=== PATIENT | female | born 1940 | race Native Hawaiian/Other Pacific Islander ===

== ENCOUNTER 2018-05-16 08:56 | Observation (INO) | payer BC, MEDICAID, MEDICARE ==
[2018-05-16 09:07] VITALS: BMI 23.4
[2018-05-16] MEDS ORDERED: Nitroglycerin 2% Ointment Foilpak UD TOP STA (09:32)
--- NOTE | 2018-05-16 09:37 | ED PDOC ---
Arrival/HPI - General Chief Complaint: Chest Pain Time Seen by Provider: 05/16/18 09:07 Historian: Patient, EMS - History of Present Illness Narrative History of Present Illness (Text): 05/16/18 09:25 pt p/w + sudden onset of severe b/l leg cramps and + left chest/shoulder pain; pt states pain radiates to her left neck/upper left shoulder and left arm ending at the left elbow; pt took 2 ASA and thought it would help her but the chest pain continued without any improvement; pt states her leg cramps/pain awoke her from bed this morning ~ 4am; pt states + sob, + palpitations, no fever /chills/sweats, no abd pain, no n/v, no numbness/tingling, no lightheadedness/ dizziness, no LOC, no fall/trauma/sick contact, no travel; pt denied urinary/ bowel changes, no incontinence; pt denied rashes; pt denied bleeding; pt is here for further eval; pt's without other complaints. PCP: Dr Prescott? Cards: None, pt was last evaluated ~ 2 years ago, negative results at that time pt lives alone Time/Duration: 1-3 hours Symptom Onset: Sudden Symptom Course: Unchanged Quality: Tightness, Cramping, Throbbing Severity Level: Severe Activities at Onset: Rest Context: Home Past Medical History - Provider Review Nursing Documentation Reviewed: Yes - Travel History Have you recently traveled outside [place] w/in the past 3 mons?: No - Past History Past History: No Previous - Infectious Disease Hx of Infectious Diseases: None - Reproductive Menopause: Yes Currently : No - Cardiac Hx Cardiac Disorders: No - Pulmonary Hx Respiratory Disorders: No - Neurological Hx Neurological Disorder: No - HEENT Hx HEENT Disorder: No - Renal Hx Renal Disorder: No - Endocrine/Metabolic Hx Endocrine Disorders: Yes Hx Diabetes Mellitus Type 1: Yes - Hematological/Oncological Hx Blood Disorders: No - Integumentary Hx Dermatological Disorder: No - Musculoskeletal/Rheumatological Hx Musculoskeletal Disorders: No - Gastrointestinal Hx Gastrointestinal Disorders: No - Genitourinary/Gynecological Hx Genitourinary Disorders: No - Psychiatric Hx Psychophysiologic Disorder: No Hx Substance Use: No Family/Social History - Physician Review Nursing Documentation Reviewed: Yes Family/Social History: No Known Family HX Smoking Status: Never Smoked Hx Alcohol Use: No Hx Substance Use: No Hx Substance Use Treatment: No Allergies/Home Meds Allergies/Adverse Reactions: Allergies No Known Allergies Allergy (Verified 05/16/18 09:06) Home Medications: Home Meds Medication Instructions Recorded Confirmed Unobtainable 05/16/18 05/16/18 Review of Systems - Review of Systems Constitutional: Normal Eyes: Normal ENT: Normal Respiratory: SOB Cardiovascular: Chest Pain, Palpitations Gastrointestinal: Normal Genitourinary Female: Normal Musculoskeletal: Normal Skin: Normal Neurological: absent: Headache, Dizziness Endocrine: Normal Hemo/Lymphatic: Normal Psychiatric: Normal Physical Exam - Physical Exam Narrative Physical Exam (Text): 05/16/18 09:30 General: alert/awake, GCS = 15, oriented x 3, resting in bed, uncomfortable, cooperative, interactive; NAD Head: NC/AT EYE: PERRLA, EOMI, sclera anicteric, no nystagmus, no photophobia; visual field intact b/l Facial: WNL Oral: uvula/tongue are midline, no exudate/lesions, no drooling/stridor, no dysphonia; fair dentitions; moist oral mucosa NECK: intact ROM, no midline tenderness, no nuchal rigidity, no meningeal signs ; no step off Chest: CTA b/l, no w/r/r; no tachypenia, no accessory muscle use noted Cardiac: +S1, +S2, no m/r/r, + tachycardia Abdominal: +BS, soft/nd/nt, well nourished patient; no masses/rebound/guarding/ rigidity; no cardona's sign, no mcburney's point tenderness Extremities: intact ROM, strength 5/5 grossly intact in all limbs, neurovasc intact b/l; + ambulatory; reflex +2/2; no olivia's sign b/l, no pitting edema/ leg swellings noted b/l; no gross deformities noted BACK: no step off, no midline tenderness, NO crepitus, no gross deformities noted; Intact ROM SKIN: cap refill < 1 sec, no ulcerations, no petechiae, no rashes; no gross pallor noted NEURO: CNII-XII WNL, no facial asymmetries, no slurr speech, oriented x 3 NIH stroke scale ~ 0 Psych: normal insight, normal affect; follows command with ease Vital Signs Reviewed: Yes Vital Signs Temp Pulse Pulse Resp BP BP Pulse Ox 05/16/18 12:06 98 F 82 20 128/65 05/16/18 11:31 82 20 128/65 100 05/16/18 09:18 107 H 134/63 05/16/18 09:07 98.0 F 121 H 20 134/63 100 05/16/18 09:04 98.0 F 121 H 20 134/63 100 Temperature: Afebrile Blood Pressure: Normal Pulse: Tachycardic Respiratory Rate: Normal Appearance: Positive for: Well-Appearing, Uncomfortable. No: Non-Toxic, Ill- Appearing, Unkept Pain Distress: None Mental Status: Positive for: Alert and Oriented X 3 Finger Stick Blood Glucose: 46 - Systems Exam Head: Present: Atraumatic, Normocephalic Medical Decision Making ED Course and Treatment: 05/16/18 09:38 Impression: left chest pain, palpitations, leg cramps i have consider all the differential diagnosis regarding pt's chief medical complaints/clinical findings, including but are not limited to: r/o acs, palpitations, leg cramps (likely peripheral neuropathy) A/P: left chest pain, palpitations - labs - acs eval - xray - supportive care - observe/reevaluation pt took ASA prior to Emergency department arrival [id number] pt is feeling improved pt states chest pain is easing given pt's complaints and multiple co-morbidities, will recommend patient for admission, ACS eval/observation pt is made aware of his medical results agrees with admission 05/16/18 11:15 Dr. Sutherland contacted, made aware of patient's emergent complaints, diagnostic finds, and emergency department management. Is agreeable with emergency department admission/observation placement. Requests Dr. Salazar for cardiac evaluation. due to elevated D-dimer with tachycardia, will recommend CTA chest, r/o pe Re-evaluation Time: 12:30 Reassessment Condition: Improved - Lab Interpretations Lab Results: 05/16/18 09:47 05/16/18 09:47 Lab Results 05/16/18 09:59: POC Glucose (mg/dL) 90 05/16/18 09:47: pO2 30, VBG pH 7.30 L, VBG pCO2 53.0, VBG HCO3 26.1, VBG Total CO2 27.7, VBG O2 Sat (Calc) 55.4, VBG Base Excess -1.1 L, VBG Potassium 4.4, Sodium 138.0, Chloride 106.0, Glucose 97, Lactate 3.7 H, FiO2 21.0, Venous Blood Potassium 4.4 05/16/18 09:47: TSH 3rd Generation 0.18 L 05/16/18 09:47: Sodium 140, Chloride 104, Potassium 4.4, Carbon Dioxide 25, Anion Gap 17, BUN 24 H, Creatinine 1.0, Est GFR ( Amer) > 60, Est GFR ( Non-Af Amer) 54, Random Glucose 97, Calcium 10.1, Magnesium 1.6 L, Total Bilirubin 0.1 L, AST 28, ALT 25, Alkaline Phosphatase 74, Lactate Dehydrogenase 341, Total Creatine Kinase 56, Troponin I < 0.01, NT-Pro-B Natriuret Pep 572 H, Total Protein 7.3, Albumin 3.8, Globulin 3.5, Albumin/Globulin Ratio 1.1 05/16/18 09:47: Urine Color Yellow, Urine Appearance Clear, Urine pH 5.5, Ur Specific Douglas 1.020, Urine Protein Negative, Urine Glucose (UA) 100 H, Urine Ketones Negative, Urine Blood Negative, Urine Nitrate Negative, Urine Bilirubin Negative, Urine Urobilinogen 0.2, Ur Leukocyte Esterase Trace H, Urine RBC 0 - 2 , Urine WBC 2 - 5, Ur Epithelial Cells 3 - 4, Urine Bacteria Few 05/16/18 09:47: PT 12.8 H, INR 1.11 H, APTT 24.4 L, D-Dimer, Quantitative 623 H 05/16/18 09:47: WBC 10.8, RBC 3.84, Hgb 10.8 L, Hct 33.3 L, MCV 86.7, MCH 28.1, MCHC 32.4, RDW 12.9, Plt Count 279, MPV 10.4, Gran % 69.9 H, Lymph % (Auto) 22.1 , Mcclain % (Auto) 6.8 H, Eos % (Auto) 0.9 L, Baso % (Auto) 0.3, Gran # 7.55 H, Lymph # (Auto) 2.4, Mcclain # (Auto) 0.7 H, Eos # (Auto) 0.1, Baso # (Auto) 0.03 05/16/18 09:05: POC Glucose (mg/dL) 46 L I have reviewed the lab results: Yes Interpretation: Abnormal lab values - RAD Interpretation Narrative RAD Interpretations (Text): 05/16/18 11:18 Chest X-ray reviewed by radiologist, shows: FINDINGS: LUNGS: No active pulmonary disease. PLEURA: No significant pleural effusion identified, no pneumothorax apparent. CARDIOVASCULAR: Normal. OSSEOUS STRUCTURES: No significant abnormalities. VISUALIZED UPPER ABDOMEN: Normal. OTHER FINDINGS: None. IMPRESSION: No active disease. ------- 05/16/18 14:10 PROCEDURE: CT chest with contrast (Pulmonary Angiogram) HISTORY: Chest pain. Rule out PE. COMPARISON: None available. TECHNIQUE: Contiguous helical/ transaxial computed tomography images were obtained of the chest in the pulmonary arterial phase of enhancement. Coronal and sagittal reformatted images were created and reviewed. Intravenous contrast dose: 100 cc Omnipaque 350 Radiation dose: Total exam DLP = 191.96 mGy-cm. This CT exam was performed using one or more of the following dose reduction techniques: Automated exposure control, adjustment of the mA and/or kV according to patient size, and/or use of iterative reconstruction technique. FINDINGS: PULMONARY ARTERIES: The visualized pulmonary trunk, right and left main, lobar, segmental and subsegmental branches of the pulmonary arteries are well opacified with no definitive filling defects seen to suggest acute central pulmonary embolus. Pulmonary trunk measures approximately 2.16 cm. AORTA: No acute findings. No thoracic aortic aneurysm. Ascending thoracic aorta measures approximately 3.0 5 cm and descending thoracic aorta measures approximately 2.3 cm. Soft and partially calcified atherosclerotic plaque changes noted along transverse and descending thoracic aorta extending into the upper abdominal aorta. LUNGS: Mild passive/dependent type atelectasis seen both posterior upper and lower lobes former slightly more significant than the latter. . There is a discrete approximately 5.8 mm nodule right posterior sulcus. Follow-up CT scan in 6 months recommended to assess stability. . PLEURAL SPACES: Unremarkable. No effusion or pneumothorax. HEART: Heart size is within range of normal. No significant pericardial effusion. . LYMPH NODES: There is a small borderline sized prevascular lymph node measuring 14 mm. . Suspect a small approximately 11.3 mm sub carinal lymph node size with the tiny calcification there may also be an additional right posterior mediastinal lymph node dorsal to the proximal right mainstem bronchus measuring 11 mm. . . There appears to be small approximately 6 mm right hilar lymph node. Central airways are midline and patent. No large central endoluminal lesions. BONES, CHEST WALL: Multilevel degenerative spondylosis of the thoracic spine most pronounced involving the mid to lower segments OTHER FINDINGS: There is an approximately 8 mm elliptical shaped calcification right lobe thyroid gland with an additional subjacent incomplete ring-like calcification. Followup thyroid ultrasound recommended. IMPRESSION: No evidence of acute central pulmonary embolus. .Mild passive atelectasis both posterior upper and lower lobes. Small 5.8 mm nodule right lung base. Follow-up CT scan 6 months recommended. . There are calcifications seen right lobe thyroid gland. Recommend followup thyroid ultrasound. Few shotty mediastinal lymph nodes as above Radiology Orders: 05/16/18 09:32 CHEST PORTABLE [RAD] Stat Director Pharmacy Services: Radiologist - EKG Interpretation EKG Interpretation (Text): 05/16/18 10:08 Sinus tach at 115 bpm, normal axis, no ectopy, non-specific ST changes, ABNL EKG ; no old ekg to compare with Interpreted by ED Physician: Yes Type: 12 lead EKG Comparison: No previous EKG avail. - Medication Orders Current Medication Orders: Gabapentin (Neurontin) 300 mg PO STAT BANG PRN Reason: Protocol Last Admin: 05/16/18 09:51 Dose: 300 mg Discontinued Medications Nitroglycerin (Nitro-Bid 2% Oint) 1 ea TOP STAT STA Stop: 05/16/18 09:33 Last Admin: 05/16/18 09:52 Dose: 1 ea Pneumococcal Polyvalent Vaccine (Pneumovax 23 Vaccine) 0.5 ml IM .ONCE ONE Stop: 05/16/18 12:34 Disposition/Present on Arrival - Present on Arrival Any Indicators Present on Arrival: No History of DVT/PE: No History of Uncontrolled Diabetes: No Urinary Catheter: No History of Decub. Ulcer: No History Surgical Site Infection Following: None - Disposition Have Diagnosis and Disposition been Completed?: Yes Diagnosis: Chest pain with moderate risk for cardiac etiology, Leg cramps, Hyperthyroidism Diagnosis: (Ruled Out): Hypothyroid Disposition: HOSPITALIZED Disposition Time: 11:30 Patient Plan: Admission, Observation, Telemetry Patient Problems: Current Active Problems Problem Status Onset Chest pain with moderate risk for cardiac etiology Acute Condition: STABLE
[2018-05-16 10:15] LABS: VENOUS BLOOD GAS BASE EXCESS -1.1 mmol/L (0.0-2.0); VENOUS BLOOD GAS PO2 30 mm/Hg (30-55)
[2018-05-16 10:20] LABS: PH,URINE 5.5 (4.7-8.0); URINE BILIRUBIN NEGATIVE (NEGATIVE); URINE BLOOD NEGATIVE (NEGATIVE); URINE GLUCOSE (UA) 100 mg/dL (NEGATIVE); URINE LEUKOCYTE ESTERASE TRACE Leu/uL (NEGATIVE); URINE PROTEIN NEGATIVE mg/dL (<30 mg/dL); URINE UROBILINOGEN 0.2 E.U./dL (<1 E.U./dL)
[2018-05-16 10:22] LABS: BASO # 0.03 K/mm3 (0.0-2.0); BASO % 0.3 % (0.0-3.0); EOS # 0.1 (0.0-0.7); EOS % 0.9 % (1.5-5.0); GRAN # 7.55 (1.4-6.5); GRAN % 69.9 % (50.0-68.0); HEMOGLOBIN 10.8 g/dL (12.0-16.0); LYMPH # 2.4 (1.2-3.4); LYMPH % 22.1 % (22.0-35.0); MEAN CELL VOLUME 86.7 fl (80.0-105.0); MEAN CORPUSCULAR HEMOGLOBIN 28.1 pg (25.0-35.0); MEAN CORPUSCULAR HGB CONC 32.4 g/dl (31.0-37.0); MEAN PLATELET VOLUME 10.4 fl (7.0-11.0); MONO # 0.7 (0.1-0.6); MONO % 6.8 % (1.0-6.0); RBC 3.84 10^6/uL (3.5-6.1); RED CELL DISTRIBUTION WIDTH 12.9 % (11.5-14.5); WHITE BLOOD COUNT 10.8 10^3/ul (4.5-11.0)
[2018-05-16 10:23] LABS: ALB/GLOB RATIO 1.1 (1.1-1.8); ALBUMIN 3.8 g/dL (3.0-4.8); ALT/SGPT 25 U/L (7-56); AST/SGOT 28 U/L (14-36); BLOOD UREA NITROGEN 24 mg/dL (7-21); CALCIUM 10.1 mg/dL (8.4-10.5); GFR AFRICAN-AMERICAN > 60; GFR NON-AFRICAN AMERICAN 54
[2018-05-16 10:26] LABS: URINE APPEARANCE CLEAR (CLEAR); URINE COLOR YELLOW (YELLOW)
[2018-05-16 10:29] LABS: URINE RBC 0 - 2 /hpf (0-2)
[2018-05-16 10:30] LABS: URINE BACTERIA FEW (NEG)
[2018-05-16 10:33] LABS: INR 1.11 (0.93-1.08); PARTIAL THROMBOPLASTIN TIME 24.4 Seconds (25.1-36.5); PROTHROMBIN TIME 12.8 SECONDS (9.4-12.5)
[2018-05-16 10:34] LABS: B-TYPE NATRIURETIC PEPTIDE 572 pg/mL (0-450); TROPONIN I < 0.01 ng/mL
--- NOTE | 2018-05-16 11:17 | RAD ---
HISTORY: chest pain COMPARISON: No prior. FINDINGS: LUNGS: No active pulmonary disease. PLEURA: No significant pleural effusion identified, no pneumothorax apparent. CARDIOVASCULAR: Normal. OSSEOUS STRUCTURES: No significant abnormalities. VISUALIZED UPPER ABDOMEN: Normal. OTHER FINDINGS: None. IMPRESSION: No active disease.
[2018-05-16] MEDS ORDERED: Pneumococcal 23-Valent Vaccine IM ONE (12:33)
[2018-05-16] MEDS ORDERED: Iohexol 350 MG/100 ML VIAL ONE (12:34)
[2018-05-16 13:13] LABS: VENOUS BLOOD GAS BASE EXCESS 0.6 mmol/L (0.0-2.0); VENOUS BLOOD GAS PO2 46 mm/Hg (30-55); VENOUS BLOOD PH 7.33 (7.32-7.43)
--- NOTE | 2018-05-16 14:03 | CARD ---
APPROVED REPORT EKG Measurement Heart [id number] <Conclusion> Sinus tachycardia Nonspecific ST abnormality Abnormal ECG
--- NOTE | 2018-05-16 14:09 | CT ---
PROCEDURE: CT chest with contrast (Pulmonary Angiogram) HISTORY: Chest pain. Rule out PE. COMPARISON: None available. TECHNIQUE: Contiguous helical/ transaxial computed tomography images were obtained of the chest in the pulmonary arterial phase of enhancement. Coronal and sagittal reformatted images were created and reviewed. Intravenous contrast dose: 100 cc Omnipaque 350 Radiation dose: Total exam DLP = 191.96 mGy-cm. This CT exam was performed using one or more of the following dose reduction techniques: Automated exposure control, adjustment of the mA and/or kV according to patient size, and/or use of iterative reconstruction technique. FINDINGS: PULMONARY ARTERIES: The visualized pulmonary trunk, right and left main, lobar, segmental and subsegmental branches of the pulmonary arteries are well opacified with no definitive filling defects seen to suggest acute central pulmonary embolus. Pulmonary trunk measures approximately 2.16 cm. AORTA: No acute findings. No thoracic aortic aneurysm. Ascending thoracic aorta measures approximately 3.0 5 cm and descending thoracic aorta measures approximately 2.3 cm. Soft and partially calcified atherosclerotic plaque changes noted along transverse and descending thoracic aorta extending into the upper abdominal aorta. LUNGS: Mild passive/dependent type atelectasis seen both posterior upper and lower lobes former slightly more significant than the latter. . There is a discrete approximately 5.8 mm nodule right posterior sulcus. Follow-up CT scan in 6 months recommended to assess stability. . PLEURAL SPACES: Unremarkable. No effusion or pneumothorax. HEART: Heart size is within range of normal. No significant pericardial effusion. . LYMPH NODES: There is a small borderline sized prevascular lymph node measuring 14 mm. . Suspect a small approximately 11.3 mm sub carinal lymph node size with the tiny calcification there may also be an additional right posterior mediastinal lymph node dorsal to the proximal right mainstem bronchus measuring 11 mm. . . There appears to be small approximately 6 mm right hilar lymph node. Central airways are midline and patent. No large central endoluminal lesions. BONES, CHEST WALL: Multilevel degenerative spondylosis of the thoracic spine most pronounced involving the mid to lower segments OTHER FINDINGS: There is an approximately 8 mm elliptical shaped calcification right lobe thyroid gland with an additional subjacent incomplete ring-like calcification. Followup thyroid ultrasound recommended. IMPRESSION: No evidence of acute central pulmonary embolus. .Mild passive atelectasis both posterior upper and lower lobes. Small 5.8 mm nodule right lung base. Follow-up CT scan 6 months recommended. . There are calcifications seen right lobe thyroid gland. Recommend followup thyroid ultrasound. Few shotty mediastinal lymph nodes as above
[2018-05-16 14:34] LABS: VENOUS BLOOD GAS BASE EXCESS -1.1 mmol/L (0.0-2.0); VENOUS BLOOD GAS PO2 31 mm/Hg (30-55); VENOUS BLOOD PH 7.37 (7.32-7.43)
[2018-05-16 15:23] LABS: ALBUMIN 3.8 g/dL (3.0-4.8); HDL CHOLESTEROL 33 mg/dL (29-60)
[2018-05-16 15:30] LABS: IRON 25 ug/dL (45-180)
[2018-05-16 15:34] LABS: LDL CHOLESTEROL 90 mg/dL (0-129)
[2018-05-16 15:36] LABS: B-TYPE NATRIURETIC PEPTIDE 562 pg/mL (0-450); TROPONIN I < 0.01 ng/mL
[2018-05-16 15:39] LABS: % IRON SATURATION 7 % (20-55); TOTAL IRON BINDING CAPACITY 327 ug/dL (265-497)
[2018-05-16] MEDS: Insulin Reg-LOW-Coverage SC SCH ×2 (18:25→23:37)
[2018-05-16 18:37] LABS: PH,URINE 6.5 (4.7-8.0); URINE BILIRUBIN NEGATIVE (NEGATIVE); URINE BLOOD NEGATIVE (NEGATIVE); URINE GLUCOSE (UA) >=1000 mg/dL (NEGATIVE); URINE LEUKOCYTE ESTERASE NEGATIVE Leu/uL (NEGATIVE); URINE PROTEIN NEGATIVE mg/dL (<30 mg/dL); URINE UROBILINOGEN 0.2 E.U./dL (<1 E.U./dL)
[2018-05-16 18:39] LABS: URINE APPEARANCE CLEAR (CLEAR); URINE COLOR YELLOW (YELLOW)
[2018-05-16 18:48] LABS: VENOUS BLOOD GAS BASE EXCESS 0.3 mmol/L (0.0-2.0); VENOUS BLOOD GAS PO2 45 mm/Hg (30-55); VENOUS BLOOD PH 7.39 (7.32-7.43)
[2018-05-16 23:52] LABS: TROPONIN I < 0.01 ng/mL
[2018-05-17 07:01] LABS: HEMOGLOBIN 11.1 g/dL (12.0-16.0); MEAN CELL VOLUME 85.4 fl (80.0-105.0); MEAN CORPUSCULAR HEMOGLOBIN 27.9 pg (25.0-35.0); MEAN CORPUSCULAR HGB CONC 32.6 g/dl (31.0-37.0); MEAN PLATELET VOLUME 10.7 fl (7.0-11.0); RBC 3.98 10^6/uL (3.5-6.1); RED CELL DISTRIBUTION WIDTH 12.8 % (11.5-14.5); WHITE BLOOD COUNT 9.2 10^3/ul (4.5-11.0)
[2018-05-17 07:28] LABS: ALBUMIN 3.5 g/dL (3.0-4.8); ALT/SGPT 25 U/L (7-56); AST/SGOT 29 U/L (14-36); BLOOD UREA NITROGEN 24 mg/dL (7-21); GFR AFRICAN-AMERICAN > 60; GFR NON-AFRICAN AMERICAN 54
[2018-05-17 08:10] LABS: TROPONIN I < 0.01 ng/mL
[2018-05-17] MEDS: Insulin Reg-LOW-Coverage SC SCH ×3 (11:12→21:55)
[2018-05-17 13:15] LABS: FOLATE > 20.0 ng/mL
--- NOTE | 2018-05-17 16:36 | US ---
HISTORY: Abnormal CT scan TECHNIQUE: Sonographic evaluation of the thyroid gland. COMPARISON: None FINDINGS: RIGHT LOBE: Measures 2.3 x 2.7 x 5.5 cm. Heterogenous echotexture, normal vascularity Nodules: 1. Cystic nodule upper pole 3 x 5 x 5 mm. 2. Midpole nodule incompletely characterized because of calcific rim 1.1 x 1.2 x 0.8 cm. 3. Midpole complex solid/cystic nodule 0.6 x 1.3 x 0.7 cm. 4. Solid nodule mid lower pole region 1.6 x 0.9 x 1.3 cm LEFT LOBE: Measures 1.4 x 2.9 x 4.2 cm. Heterogenous echotexture, normal vascularity Nodules: 1. Complex primarily cystic nodule upper pole 0.5 x 1 x 0.7 cm. 2. Cystic nodule midpole region 0.3 x 0.5 x 0.5 cm. 3. Midpole nodule primarily solid 0.3 x 0.5 x 0.6 ISTHMUS: Measures 0.27 cm. Nodules: None OTHER FINDINGS: None . IMPRESSION: Normal size gland, multiple (7) bilateral thyroid nodules likely multinodular goiter. Recommendations for follow-up: 1. Radionuclide Scan to assess Thyroid function and to evaluate the thyroid for the presence of hot or cold nodules. 2. Fine needle aspiration (FNA) should also be considered as an invasive diagnostic tool in the assessment of findings described above.
--- NOTE | 2018-05-17 19:06 | PN ---
DATE: 05/17/2018 SUBJECTIVE: Patient is 77 years old female. Patient seen and examined at bedside. Looking comfortable. She is on the phone with her family. No new complaints. No nausea, vomiting or diarrhea. No hematuria or hematochezia. No swelling of the legs. No chest pain or palpitations. No headache or dizziness. PHYSICAL EXAMINATION: VITAL SIGNS: Temperature 99, pulse 95, blood pressure 115/58, respiratory rate 20. HEENT: Head is normocephalic, atraumatic. Eyes: PERRLA. Extraocular muscles intact. Conjunctivae clear. Nose patent. Mucous membrane moist. NECK: Supple. No carotid bruit. No JVD or thyromegaly. CHEST: Bilaterally symmetrical. HEART: S1 and S2 positive. LUNGS: Clear to auscultation. ABDOMEN: Soft. Bowel sounds present. No organomegaly. EXTREMITIES: No edema. No cyanosis. NEUROLOGIC: The patient is awake and alert. Moving all 4 extremities. No focal deficit. MEDICATIONS: Ecotrin, insulin, Neurontin, Norvasc, Pepcid. LABORATORY DATA: White blood cell is 9.3, hemoglobin 11.1, hematocrit 32, platelets 289. Sodium 137, potassium 4.7, BUN 24, creatinine 1, glucose 339, TSH is 0.31, triglyceride 220, hemoglobin A1c 13.4. ASSESSMENT AND PLAN: Ms. Lou Chen, 77-year-old lady with uncontrolled diabetes mellitus, hypertriglyceridemia, rule out hyperthyroidism, anemia, came with chest pain. CT of chest done. 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 No evidence for acute central pulmonary embolism. Mild opacities and atelectasis in both posterior upper and lower lobes, mild 5.8 mm nodule in the right lung base. Followup CT scan at 6 months is recommended. There are calcification seen in the right lobe of the thyroid gland. Recommending followup thyroid ultrasound. We will give diabetic education. Very noncompliant followup visits. Gastrointestinal and deep venous thrombosis prophylaxis. Hypertension. Dr. Kvng Haas added amlodipine 5. We will do followup. Continue nitroglycerin, Pepcid, gastrointestinal prophylaxis, aspirin, insulin. Repeat labs. We will follow up. Rose Sutherland MD
--- NOTE | 2018-05-17 20:33 | CON ---
PULMONARY CONSULT REFERRING PHYSICIAN: Rose Sutherland MD REASON FOR CONSULT: Chest pain, shortness of breath. HISTORY OF PRESENT ILLNESS: This is a 77 years old female with past medical history significant for diabetes, presented to emergency room with left-sided chest pain radiated to the arm, also some leg cramps. She took some aspirin without much relief, came to emergency room. No nausea, no vomiting, no diarrhea. There is no leg swelling. PAST MEDICAL HISTORY: Significant for diabetes, has a history of cardiac workup done about 2 years ago, which was negative. SOCIAL HISTORY: She lives alone. No smoking or alcohol use. FAMILY HISTORY: No significant cardiopulmonary disease reported. ALLERGIES: NONE KNOWN. MEDICATIONS: She is on Ecotrin 81 mg daily, metformin 850 mg twice a day, insulin coverage, gabapentin 300 mg was given one dose, Norvasc 5 mg daily, Pepcid 40 mg daily. REVIEW OF SYSTEMS: At present, no headache, no rhinitis. No more chest pain. Short of breath with exertion. No nausea, vomiting, or diarrhea. No leg pain or leg swelling. PHYSICAL EXAMINATION: GENERAL: No acute distress. VITAL SIGNS: Temperature is 99, heart rate is 95, respiratory rate is 20, blood pressure 160/68, pulse ox 100% on room air. HEENT: Moist mucous membranes. Small oral cavity. NECK: Supple. No JVD. LUNGS: Fair airflow with few rhonchi. HEART: S1 and S2. ABDOMEN: Soft, nontender. No organomegaly. EXTREMITIES: There is no edema. NEUROLOGIC: Awake and follows simple commands. LABORATORY DATA: Shows hemoglobin 11.1, hematocrit 34, WBC 9.2, and platelets 289. INR 1.1, PTT 25, D-dimer was 623. VBG done showed pH 7.39, pCO2 of 42, O2 45. Sodium 137, potassium 4.6, chloride 102, bicarbonate 25. BUN 24, creatinine 1. Glucose is 339. Calcium is 9. AST 29, ALT 25, alk phos is 66. LDH 315. Albumin is 3.5. TSH 0.31. Urinalysis is unremarkable. Urine culture so far there is no growth. Has a CT of the chest done, which shows no evidence of acute central pulmonary embolism; mild possible atelectasis, both posterior upper and lower lobe; small 5.8 mm nodule on the right lung base. There are calcifications seen in the right lobe of thyroid. IMPRESSION AND PLAN: Nonspecific chest pain. The patient is diabetic, hypertensive, anemic. Agreed with Dr. Sutherland with the present management. Continue aspirin. Continue gastric prophylaxis, deep venous thrombosis prophylaxis. Cardiac workup. Hold Glucophage for now, may give Prandin 2 mg with the meals. Anemia workup. Thank you and we will follow with you. Tosin Burrell MD
--- NOTE | 2018-05-17 23:01 | CON ---
DATE: 05/17/2018 CARDIOLOGY CONSULTATION (For Dr. Salazar). HISTORY OF PRESENT ILLNESS: The patient is a 77-year-old woman with a history of diabetes mellitus who presents with leg pain, arm pain, shoulder pain, chest pain and back pain. All the symptoms have resolved now. The patient's last cardiac workup was in 2013 with a stress test was normal. The cardiac risk factors includes diabetes mellitus. No previous cardiac history is noted. SOCIAL HISTORY: The patient denies smoking. REVIEW OF SYSTEMS: A 14-point review of systems is reviewed in detail. The patient is feeling well after good night sleep. No symptoms anywhere. PHYSICAL EXAMINATION: VITAL SIGNS: Blood pressure is 160/68, heart rate in the 90s, normal sinus rhythm. NECK: Negative JVD. LUNGS: Without rales. HEART: With S1, S2. EXTREMITIES: Without edema. EKG is unremarkable. LABORATORY DATA: Glucose is 306. Troponins are negative x2. Hemoglobin is 11. IMPRESSION: 1. Diffuse body aches including chest pain, which are all resolved. 2. No evidence for acute coronary syndrome. 3. Diabetes mellitus. 4. Hypertension. 5. Anemia. PLAN: Given these findings, there is no evidence for acute coronary syndrome. We will continue on baby aspirin daily. We will turn the case over to Dr. Salazar in the morning. Kvng Haas MD
[2018-05-18 06:37] VITALS: RESP 18
[2018-05-18 07:04] LABS: HEMOGLOBIN 11.2 g/dL (12.0-16.0); MEAN CELL VOLUME 84.8 fl (80.0-105.0); MEAN PLATELET VOLUME 10.3 fl (7.0-11.0); RED CELL DISTRIBUTION WIDTH 12.6 % (11.5-14.5)
[2018-05-18 07:20] LABS: IRON 52 ug/dL (45-180)
[2018-05-18 07:32] LABS: % IRON SATURATION 15 % (20-55); TOTAL IRON BINDING CAPACITY 343 ug/dL (265-497)
--- NOTE | 2018-05-18 07:59 | CP.PCM.PN ---
Subjective - Date & Time of Evaluation Date of Evaluation: 05/18/18 Time of Evaluation: 06:50 - Subjective Subjective: Awake, lying in bed, denies chest pain, denies shortness of breath Reason for consultation and follow up: Cardiac evaluation for chest pain and shortness of breath,hypertension,diabetes mellitus Seen and examined by me and Dr. Salazar Objective - Vital Signs/Intake and Output Vital Signs (last 24 hours): Temp Pulse Resp BP Pulse Ox 98.0 F 97 H 18 148/73 95 05/18/18 06:00 05/18/18 06:00 05/18/18 06:00 05/18/18 06:00 05/18/18 06:00 Intake and Output: 05/18/18 05/18/18 06:59 18:59 Intake Total 360 Balance 360 - Medications Medications: Current Medications Amlodipine Besylate (Norvasc) 5 mg PO DAILY [facility] Last Admin: 05/17/18 13:30 Dose: 5 mg Aspirin (Ecotrin) 81 mg PO DAILY [facility] Last Admin: 05/17/18 11:12 Dose: 81 mg Famotidine (Pepcid) 40 mg PO HS [facility] Last Admin: 05/17/18 21:52 Dose: 40 mg Gabapentin (Neurontin) 300 mg PO STAT [facility] PRN Reason: Protocol Last Admin: 05/17/18 11:11 Dose: 300 mg Insulin Human Regular (Humulin R Low) 0 units SC [facility] PRN Reason: Protocol Last Admin: 05/17/18 21:55 Dose: Not Given Repaglinide (Prandin) 2 mg PO AC [facility] Last Admin: 05/17/18 16:30 Dose: 2 mg - Labs Labs: 05/18/18 06:00 05/17/18 06:30 PT 12.8 SECONDS (9.4-12.5) H 05/16/18 09:47 INR 1.11 (0.93-1.08) H 05/16/18 09:47 APTT 24.4 Seconds (25.1-36.5) L 05/16/18 09:47 - Constitutional Appears: No Acute Distress - Head Exam Head Exam: NORMOCEPHALIC - Eye Exam Eye Exam: Normal appearance - ENT Exam ENT Exam: Mucous Membranes Moist - Respiratory Exam Respiratory Exam: Clear to Ausculation Bilateral, NORMAL BREATHING PATTERN - Cardiovascular Exam Cardiovascular Exam: REGULAR RHYTHM, +S1, +S2 Additional comments: telemetry- NSR - GI/Abdominal Exam GI & Abdominal Exam: Soft, Normal Bowel Sounds - Extremities Exam Extremities Exam: Normal Capillary Refill - Neurological Exam Neurological Exam: Alert, Awake, Oriented x3 - Psychiatric Exam Psychiatric exam: Normal Affect, Normal Mood - Skin Skin Exam: Normal Color Assessment and Plan - Assessment and Plan (Free Text) Assessment: A 77 year old female who came in to the ER due to chest pain and shortness of breath. History of hypertension, diabetes mellitus, claimed to have cardiac work up 2 years ago and all normal. Stress test 2013 was normal. all symptoms are all resolved now. Plan: Atypical chest pain Echo to evaluate LV function Blood pressure controlled with Norvasc Continue current medications EKG sinus tachycardia with non specific abnormality Continue current treatment Will follow up Plan and treatment discussed with Dr. Salazar
--- NOTE | 2018-05-18 08:20 | HP ---
DATE OF EXAM: 05/16/2018 CHIEF COMPLAINT: Chest pain, shortness of breath. HISTORY OF PRESENT ILLNESS: Ms. Lou Chen came into [facility] with sudden onset of severe bilateral leg cramps, left-sided chest pain, shoulder pain, shortness of breath. The patient states the pain radiates to her left neck, upper left shoulder, and left arm ending at the left elbow. The patient took two aspirin and thought it will be helpful, but the chest pain continued without any improvement. The patient states that her leg cramps woke her up from bed this morning at 4 a.m. The patient states sometimes having shortness of breath, sometimes palpitation. No fever, no chills, no sweating. No headache or dizziness. No nausea or vomiting. No loss of consciousness. No fall, trauma, or sick contact. No travel. The patient denies urinary and bowel changes. No incontinence. The patient denies rashes. The patient denies bleeding and came for further evaluation. I saw the patient in ER, had discussion done with Dr. Mckeon. PAST MEDICAL HISTORY: The patient has not seen the doctor regularly; the last time she saw her doctor was 2 years ago. According to patient, she has history of diabetes mellitus. SOCIAL HISTORY: She lives alone. FAMILY HISTORY: Father and mother noncontributory. HABITS: No smoking. No drugs. No ethanol. ALLERGIES: THE PATIENT IS NOT ALLERGIC TO ANY MEDICATION. HOME MEDICATIONS: She does not know. REVIEW OF SYSTEMS: The patient is seen and examined at the bedside in the ER. Still complaining of left-sided chest pain, shortness of breath, palpitation. No fever, no chills. No nausea, vomiting, or diarrhea. No hematuria or hematochezia. No headache, no dizziness. PHYSICAL EXAMINATION: VITAL SIGNS: Temperature 98, pulse 52, respiratory rate is 20, blood pressure 120/55. HEENT: Head: Normocephalic, atraumatic. Eyes: PERRLA. Extraocular muscles intact. Conjunctivae clear. Nose: Patent. Mucous membranes moist. NECK: Supple. No carotid bruit. No JVD or thyromegaly. CHEST: Bilaterally symmetrical. HEART: S1 and S2 positive. LUNGS: Clear to auscultation. ABDOMEN: Soft. Bowel sounds present. No organomegaly. EXTREMITIES: No edema. No cyanosis. NEUROLOGIC: The patient is awake and alert. Moving all 4 extremities. No focal deficits. LABORATORY DATA: White blood cell 7.8, hemoglobin 10.8, hematocrit 33.3, platelets 279. Sodium 140, potassium 4.4, BUN 24, creatinine 1. ASSESSMENT AND PLAN: Ms. Lou Chen is a 77-year-old lady with anemia, came with chest pain. The patient has 8 mm elliptical-shaped calcified right lobe thyroid gland with details of the incomplete ring like calcification. Follow up of thyroid ultrasound recommended by the radiologist. There are shotty mediastinal lymph nodes. We will call Pulmonary consult also. We admitted this patient with chest pain with UNKNOWN etiology, history of diabetes mellitus, not sure about the medicines. Discussion done with Dr. Mckeon and patient's nurse. Heart-healthy diet started. Ultrasound of the thyroid. We will call Pulmonary consult for shotty lymph nodes. Gastrointestinal and deep venous thrombosis prophylaxis. Repeat labs. We will follow up. Rose Sutherland MD [place]
[2018-05-18] MEDS: Insulin Reg-LOW-Coverage SC SCH ×4 (08:38→17:41)
[2018-05-18 12:47] LABS: FOLATE > 20.0 ng/mL
[2018-05-18 14:01] LABS: HDL CHOLESTEROL 36 mg/dL (29-60)
[2018-05-18 14:12] LABS: LDL CHOLESTEROL 104 mg/dL (0-129)
[2018-05-18 18:42] VITALS: BP 146/72; PULSE 99; TEMP 98.2; O2SAT 96
--- NOTE | 2018-05-18 22:24 | PN ---
DATE: 05/18/2018 PULMONARY PROGRESS NOTE REFERRING PHYSICIAN: Rose Sutherland MD. SUBJECTIVE: She is lying in the bed, head at 45 degrees. Night was unremarkable. No headache. No rhinitis. There is no chest pain today. No nausea. No vomiting. No diarrhea. No leg pain or leg swelling. PHYSICAL EXAMINATION: GENERAL: In no acute distress. VITAL SIGNS: Temperature is 98, heart rate is 97, respiratory rate is 18, blood pressure 148/73, pulse ox 95% on room air. HEENT: Moist mucous membrane. Small oral cavity. NECK: Supple. No JVD. LUNGS: Have a fair airflow with rhonchi. HEART: S1 and S2. ABDOMEN: Soft, nontender. No organomegaly. EXTREMITIES: No edema. NEUROLOGICAL: Awake and alert. Follows simple command. MEDICATIONS: She is on Ecotrin 81 mg daily, insulin coverage, Lipitor 10 mg daily, Norvasc 5 mg daily, Pepcid 40 mg daily, and Prandin 2 mg before meals. LABORATORY DATA: Shows hemoglobin 11.2, hematocrit 33.9, WBC 8, platelet is 282. Blood sugar this morning is 210, vitamin B12 is 391, folate is greater than 20, iron is 52, ferritin is 36. An echocardiogram done, report is pending. Thyroid ultrasound is done, shows normal-sized gland, multiple bilateral thyroid nodules, likely multinodular goiter. ASSESSMENT AND PLAN: No specific chest pain, diabetes, hypertension, anemia, mildly reduced iron and B12, multinodular goiter. Pulmonary point of view, doing okay. Waiting for cardiac workup. Blood sugar is better. Needs biopsy of the thyroid gland. We will add B12 and iron. Will need followup for lung nodule though. Thank you and we will follow with you. Tosin Burrell MD
[2018-05-19] MEDS ORDERED: Iron Complex Polysacch 150mg Cap PO SCH (10:00)
--- NOTE | 2018-05-19 10:11 | CARD ---
APPROVED REPORT EXAM: Two-dimensional and M-mode echocardiogram with Doppler and color Doppler. INDICATION LVFX/CP/SOB 2D DIMENSIONS Left Atrium (2D)3.5 (1.6-4.0cm)IVSd1.1 (0.7-1.1cm) LVDd3.6 (3.9-5.9cm)PWd1.2 (0.7-1.1cm) LVDs2.4 (2.5-4.0cm)FS (%) 34.2 % LVEF (%)64.2 (>50%) M-Mode DIMENSIONS Aortic Root2.10 (2.2-3.7cm)Aortic Cusp Exc.1.30 (1.5-2.0cm) Aortic Valve AoV Peak [id number]/Jose Eduardo Peak GR.8mmHg Mitral Valve E/A ratio0.0 TDI E/Lateral E'0.0E/Medial E'0.0 Tricuspid Valve TR Peak [id number] [id number] Peak Gr.24mmHg [id number] LEFT VENTRICLE The left ventricle is normal size. There is normal left ventricular wall thickness. The left ventricular function is normal.EF-60-65% There is normal LV segmental wall motion. Transmitral Doppler flow pattern is Grade III-reversible restrictive diastolic dysfunction. No left ventricle thrombus noted on this study. There is no ventricular septal defect visualized. There is no left ventricular aneurysm. There is no mass noted in the left ventricle. RIGHT VENTRICLE The right ventricle is normal size. There is normal right ventricular wall thickness. The right ventricular systolic function is normal. ATRIA The left atrium size is normal. The right atrium size is normal. The interatrial septum is intact with no evidence for an atrial septal defect. AORTIC VALVE The aortic valve is thickened but opens well. No aortic regurgitation is present. There is no aortic valvular stenosis. There is no aortic valvular vegetation. MITRAL VALVE The mitral valve is thickened but opens well. Mitral regurgitation is mild. There is no mitral valve stenosis. There is no evidence of mitral valve prolapse. TRICUSPID VALVE The tricuspid valve leaflets are thickened , but open well. There is mild tricuspid regurgitation.RVSP-34 mmof hg. There is no tricuspid valve stenosis. There is no tricuspid valve prolapse or vegetation. PULMONIC VALVE The pulmonary valve is normal in structure. There is no pulmonic valvular regurgitation. There is no pulmonic valvular stenosis. GREAT VESSELS The aortic root is normal in size. The ascending aorta is normal in size. The pulmonary artery is normal. The IVC is normal in size and collapses >50% with inspiration. PERICARDIAL EFFUSION There is no pleural effusion. There is no pericardial effusion. <Conclusion> Normal chamber Size. EF-60-65%. Mitral regurgitation is mild. There is mild tricuspid regurgitation.RVSP-34 mmof hg. The IVC is normal in size and collapses >50% with inspiration. There is no pericardial effusion. No Vegetation or thrombus noted.
== END 2018-05-18 19:10 | disposition home or self-care (01) ==
LOC: ED 08:56 → ERH 11:24 → 3RNO 14:08
PROVIDERS: ADMIT Internal Medicine; ATTEND Internal Medicine
DX: R07.89 Other chest pain (principal); E10.65 Type 1 diabetes mellitus with hyperglycemia; E78.1 Pure hyperglyceridemia; D64.9 Anemia, unspecified; I10 Essential (primary) hypertension; J98.11 Atelectasis; R79.1 Abnormal coagulation profile; Z91.19 Patient's noncompliance with other medical treatment and regimen; E04.2 Nontoxic multinodular goiter
CPT/HCPCS: 36415; 71045; 71275; 76536; 80053; 80061; 81001; 81003; 82040; 82550; 82607; 82728; 82746; 82803; 82948; 83036; 83540; 83550; 83615; 83735; 83880; 84443; 84484; 85025; 85027; 85378; 85610; 85730; 87086; 93005; 93306; 99285; G0378; Q9967

== ENCOUNTER 2018-06-04 20:12 | Emergency (ER) | payer MEDICARE ==
[2018-06-04 20:13] VITALS: BMI 23.4
[2018-06-04 20:45] LABS: VENOUS BLOOD GAS BASE EXCESS 2.7 mmol/L (0.0-2.0); VENOUS BLOOD GAS PO2 34 mm/Hg (30-55); VENOUS BLOOD PH 7.41 (7.32-7.43)
[2018-06-04] MEDS ORDERED: Sodium Chloride 0.9% 1,000 ML IV SCH (21:00)
[2018-06-04 21:05] LABS: BASO # 0.04 K/mm3 (0.0-2.0); BASO % 0.3 % (0.0-3.0); EOS # 0.1 (0.0-0.7); EOS % 0.5 % (1.5-5.0); GRAN # 10.13 (1.4-6.5); GRAN % 75.3 % (50.0-68.0); HEMOGLOBIN 11.6 g/dL (12.0-16.0); LYMPH # 2.4 (1.2-3.4); MEAN CELL VOLUME 85.1 fl (80.0-105.0); MEAN CORPUSCULAR HEMOGLOBIN 28.3 pg (25.0-35.0); MEAN CORPUSCULAR HGB CONC 33.2 g/dl (31.0-37.0); MEAN PLATELET VOLUME 11.1 fl (7.0-11.0); MONO # 0.8 (0.1-0.6); MONO % 5.9 % (1.0-6.0); RBC 4.1 10^6/uL (3.5-6.1); RED CELL DISTRIBUTION WIDTH 12.7 % (11.5-14.5); WHITE BLOOD COUNT 13.5 10^3/ul (4.5-11.0)
[2018-06-04 21:07] LABS: TROPONIN I < 0.01 ng/mL
[2018-06-04 21:10] LABS: ALBUMIN 3.7 g/dL (3.0-4.8); ALT/SGPT 24 U/L (7-56); AST/SGOT 27 U/L (14-36); BLOOD UREA NITROGEN 24 mg/dL (7-21); CALCIUM 9.1 mg/dL (8.4-10.5); GFR AFRICAN-AMERICAN > 60; GFR NON-AFRICAN AMERICAN > 60
--- NOTE | 2018-06-04 21:11 | ED PDOC ---
Arrival/HPI - General Chief Complaint: Dizziness/Lightheaded Time Seen by Provider: 06/04/18 20:17 Historian: Patient - History of Present Illness Narrative History of Present Illness (Text): 06/04/18 20:25 Haleigh Vee is a 77 year old female, whose past medical history includes diabetes, who presents to the Emergency department brought in by EMS complaining of mild dizziness tonight. Patient states she felt "bad." Patient denies any chest pain , shortness of breath, fever, chills, headache, vomiting, changes in appetite, or any other complaints. Symptom Onset: Gradual Symptom Course: Unchanged Activities at Onset: Light Context: Home Past Medical History - Provider Review Nursing Documentation Reviewed: Yes - Past History Past History: No Previous - Infectious Disease Hx of Infectious Diseases: None - Cardiac Hx Cardiac Disorders: No - Pulmonary Hx Respiratory Disorders: No - Neurological Hx Neurological Disorder: No - HEENT Hx HEENT Disorder: No - Renal Hx Renal Disorder: No - Endocrine/Metabolic Hx Endocrine Disorders: Yes Hx Diabetes Mellitus Type 1: Yes - Hematological/Oncological Hx Blood Disorders: No - Integumentary Hx Dermatological Disorder: No - Musculoskeletal/Rheumatological Hx Musculoskeletal Disorders: No - Gastrointestinal Hx Gastrointestinal Disorders: No - Genitourinary/Gynecological Hx Genitourinary Disorders: No - Psychiatric Hx Psychophysiologic Disorder: No Hx Substance Use: No Family/Social History - Physician Review Nursing Documentation Reviewed: Yes Family/Social History: Unknown Family HX Smoking Status: Never Smoked Hx Alcohol Use: No Hx Substance Use: No Hx Substance Use Treatment: No Allergies/Home Meds Allergies/Adverse Reactions: Allergies No Known Allergies Allergy (Verified 05/16/18 09:06) Review of Systems - Physician Review All systems were reviewed & negative as marked: Yes - Review of Systems Constitutional: Normal. absent: Fevers Eyes: Normal ENT: Normal Respiratory: Normal. absent: SOB, Cough Cardiovascular: Normal. absent: Chest Pain Gastrointestinal: Normal. absent: Abdominal Pain, Diarrhea, Nausea, Vomiting Genitourinary Female: Normal. absent: Dysuria, Frequency, Hematuria, Urine Output Changes Musculoskeletal: Normal. absent: Back Pain Skin: Normal Neurological: Dizziness. absent: Headache Endocrine: Normal Hemo/Lymphatic: Normal Psychiatric: Normal Physical Exam Vital Signs Reviewed: Yes Vital Signs Temp Pulse Resp BP Pulse Ox 06/05/18 01:59 98.8 F 94 H 17 166/68 H 98 06/05/18 00:07 96 H 17 168/61 H 97 06/04/18 20:36 99.1 F 99 H 18 116/93 H 96 Temperature: Afebrile Blood Pressure: Normal Pulse: Regular Respiratory Rate: Normal Appearance: Positive for: Well-Appearing, Non-Toxic, Comfortable Pain Distress: None Mental Status: Positive for: Alert and Oriented X 3 Finger Stick Blood Glucose: 306 - Systems Exam Head: Present: Atraumatic, Normocephalic Pupils: Present: PERRL Extroacular Muscles: Present: EOMI Conjunctiva: Present: Normal Mouth: Present: Moist Mucous Membranes Neck: Present: Normal Range of Motion Respiratory/Chest: Present: Clear to Auscultation, Good Air Exchange. No: Respiratory Distress, Accessory Muscle Use Cardiovascular: Present: Regular Rate and Rhythm, Normal S1, S2. No: Murmurs Abdomen: No: Tenderness, Distention, Peritoneal Signs Back: Present: Normal Inspection Upper Extremity: Present: Normal Inspection. No: Cyanosis, Edema Lower Extremity: Present: Normal Inspection. No: Edema Neurological: Present: GCS=15, CN II-XII Intact, Speech Normal Skin: Present: Warm, Dry, Normal Color. No: Rashes Psychiatric: Present: Alert, Oriented x 3, Normal Insight, Normal Concentration Medical Decision Making ED Course and Treatment: 06/04/18 20:25 Impression: 77 year old female complaining of mild dizziness and not feeling well. Plan: -- EKG -- Chest X-ray -- Labs, cardiac enzymes, VBG -- Urinalysis, urine cultures -- IV fluids -- Reassess and disposition Progress Notes: Reviewed EKG, sinus tachycardia at [address]-segment elevations or depressions, no T-wave inversions, normal axis, normal interval 06/04/18 21:30 Chest X-ray reviewed, shows no acute processes. 06/05/18 01:45 On re-evaluation, patient feels better and is in no acute distress. I have discussed the results and plan with the patient, who expresses understanding. Patient in agreement with plan to be discharged home. Patient is stable for discharge. Patient was instructed to follow up with physician or return if symptoms worsen or new concerning symptoms arise. - Lab Interpretations Lab Results: 06/04/18 20:39 06/04/18 20:39 Lab Results 06/05/18 01:01: POC Glucose (mg/dL) 173 H 06/05/18 00:01: POC Glucose (mg/dL) 282 H 06/04/18 23:05: Urine Color Yellow, Urine Appearance Clear, Urine pH 6.0, Ur Specific [place] 1.010, Urine Protein Negative, Urine Glucose (UA) >=1000, Urine Ketones Negative, Urine Blood Negative, Urine Nitrate Negative, Urine Bilirubin Negative, Urine Urobilinogen 0.2, Ur Leukocyte Esterase Negative 06/04/18 20:39: pO2 34, VBG pH 7.41, VBG pCO2 44.0, VBG HCO3 27.9, VBG Total CO2 29.3 H, VBG O2 Sat (Calc) 76.7 H, VBG Base Excess 2.7 H, VBG Potassium 4.3, Sodium 136.0, Chloride 105.0, Glucose 342 H, Lactate 1.7, FiO2 21.0, Venous Blood Potassium 4.3 06/04/18 20:39: Sodium 138, Chloride 102, Potassium 4.4, Carbon Dioxide 24, Anion Gap 17, BUN 24 H, Creatinine 0.9, Est GFR ( Amer) > 60, Est GFR ( Non-Af Amer) > 60, Random Glucose 312 H*, Calcium 9.1, Magnesium 1.7, Total Bilirubin 0.6, AST 27, ALT 24, Alkaline Phosphatase 100, Lactate Dehydrogenase 516, Total Creatine Kinase 39, Troponin I < 0.01, Total Protein 7.5, Albumin 3.7 , Globulin 3.8, Albumin/Globulin Ratio 1.0 L 06/04/18 20:39: WBC 13.5 H D, RBC 4.10, Hgb 11.6 L, Hct 34.9 L, MCV 85.1, MCH 28.3, MCHC 33.2, RDW 12.7, Plt Count 289, MPV 11.1 H, Gran % 75.3 H, Lymph % ( Auto) 18.0 L, [place] % (Auto) 5.9, Eos % (Auto) 0.5 L, Baso % (Auto) 0.3, Gran # 10.13 H, Lymph # (Auto) 2.4, [place] # (Auto) 0.8 H, Eos # (Auto) 0.1, Baso # (Auto ) 0.04 I have reviewed the lab results: Yes - RAD Interpretation Radiology Orders: 06/04/18 20:30 CHEST PORTABLE [RAD] Stat Optical Systems Engineer: ED Physician - EKG Interpretation Interpreted by ED Physician: Yes Type: 12 lead EKG - Medication Orders Current Medication Orders: Discontinued Medications Acetaminophen (Tylenol 325mg Tab) 975 mg PO STAT STA Stop: 06/05/18 00:37 Last Admin: 06/05/18 01:07 Dose: 975 mg Sodium Chloride (Sodium Chloride 0.9%) 1,000 mls @ 100 mls/hr IV .Q10H BANG Last Admin: 06/04/18 21:02 Dose: 100 mls/hr eMAR Start Stop Document 06/04/18 21:02 IT (Rec: 06/04/18 21:03 IT [facility] [id number] Intravenous Solution Start Date 06/04/18 Start Time 21:02 Insulin Human Regular (Humulin R) 3 units IVP STAT STA Stop: 06/04/18 23:48 Last Admin: 06/05/18 00:06 Dose: 3 units MAR Blood Glucose Document 06/05/18 00:06 IT (Rec: 06/05/18 00:06 IT [facility] [id number][place] Blood Glucose Finger Stick Blood Glucose (70-120) 282 IVP Administration Document 06/05/18 00:06 IT (Rec: 06/05/18 00:06 IT [facility] [id number][place] Charges for Administration # of IVP Administrations 1 Meclizine HCl (Antivert) 25 mg PO STAT STA Stop: 06/04/18 21:13 Last Admin: 06/04/18 21:50 Dose: 25 mg - Scribe Statement The provider has reviewed the documentation as recorded by the Mayco Rebollar Provider Scribe Attestation: All medical record entries made by the Mayco were at my direction and personally dictated by me. I have reviewed the chart and agree that the record accurately reflects my personal performance of the history, physical exam, medical decision making, and the department course for this patient. I have also personally directed, reviewed, and agree with the discharge instructions and disposition. Disposition/Present on Arrival - Present on Arrival Any Indicators Present on Arrival: No History of DVT/PE: No History of Uncontrolled Diabetes: No Urinary Catheter: No History of Decub. Ulcer: No History Surgical Site Infection Following: None - Disposition Have Diagnosis and Disposition been Completed?: Yes Diagnosis: Dizziness Disposition: HOME/ ROUTINE Disposition Time: 23:30 Condition: IMPROVED Discharge Instructions (ExitCare): Vertigo (a Type of Dizziness) (DC) Additional Instructions: HALEIGH VEE, thank you for letting us take care of you today. The emergency medical care you received today was directed at your acute symptoms. If you were prescribed any medication, please fill it and take as directed. It may take several days for your symptoms to resolve. Return to the Emergency Department if your symptoms worsen, do not improve, or if you have any other problems. Please contact your doctor or call one of the physicians/clinics you have been referred to that are listed on the Patient Visit Information form that is included in your discharge packet. Bring any paperwork you were given at discharge with you along with any medications you are taking to your follow up visit. Our treatment cannot replace ongoing medical care by a primary care provider outside of the emergency department. Thank you for allowing the [facility] team to be part of your care today. Follow up with your primary care doctor in 2-3 days for re-evaluation and further management. Prescriptions: Meclizine [Meclizine*] 25 mg PO Q6 PRN #20 tab PRN Reason: Dizziness Referrals: Genie Dugan MD [Primary Care Provider] - Follow up with primary Forms: [employer] (Swedish)
[2018-06-04 23:27] LABS: URINE BILIRUBIN NEGATIVE (NEGATIVE); URINE BLOOD NEGATIVE (NEGATIVE); URINE GLUCOSE (UA) >=1000 mg/dL (NEGATIVE); URINE LEUKOCYTE ESTERASE NEGATIVE Leu/uL (NEGATIVE); URINE PROTEIN NEGATIVE mg/dL (<30 mg/dL); URINE UROBILINOGEN 0.2 E.U./dL (<1 E.U./dL)
[2018-06-04 23:31] LABS: URINE APPEARANCE CLEAR (CLEAR); URINE COLOR YELLOW (YELLOW)
[2018-06-04] MEDS ORDERED: Insulin Regular 1 UNITS/0.01 ML ML IVP STA (23:47)
[2018-06-05 00:08] VITALS: RESP 17
[2018-06-05 01:59] VITALS: BP 166/68; PULSE 94; TEMP 98.8; O2SAT 98
--- NOTE | 2018-06-05 09:14 | CARD ---
APPROVED REPORT EKG Measurement Heart [id number] <Conclusion> Sinus tachycardia Nonspecific T wave abnormality No change
--- NOTE | 2018-06-05 12:05 | RAD ---
HISTORY: r/o infiltrate COMPARISON: 05/16/2018 FINDINGS: LUNGS: No active pulmonary disease. PLEURA: No significant pleural effusion identified, no pneumothorax apparent. CARDIOVASCULAR: Normal. OSSEOUS STRUCTURES: No significant abnormalities. VISUALIZED UPPER ABDOMEN: Normal. OTHER FINDINGS: None. IMPRESSION: No active disease.
== END 2018-06-05 01:59 | disposition home or self-care (01) ==
LOC: ED 20:12
DX: R42 Dizziness and giddiness (principal); E11.9 Type 2 diabetes mellitus without complications
CPT/HCPCS: 71045; 80053; 81003; 82550; 82803; 82948; 83615; 83735; 84484; 85025; 87086; 93005; 96374; 99285; J7030